=== PATIENT | female | born 1965 | race African-American/Black ===

== ENCOUNTER 2016-05-31 10:36 | Inpatient (IN) | payer MEDICARE ==
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
--- NOTE | ~2016-05-31 | DS ---
Unit #: [id number] #: [id number] Patient: SANDI WESTON [id number] [facility] [address] [place] [address] [id number] I MR#: [id number] NAME: SANDI WESTON ROOM: [facility] Age: 50 Sex: F Admission Date: 05/31/2016 : 1965 Discharge Date: 06/03/2016 Attending Physician: Zachery Keith M.D. Primary Care Physician: Primary Care Physician No DISCHARGE SUMMARY REASON FOR ADMISSION Sandi is a 50-year-old woman trying to cut herself with a steak knife when she came to the hospital. She appeared to be paranoid and out of control, and denied a history of drug abuse, although there was some opioids and her toxicology screen. She was admitted for suicidal ideation. DIAGNOSTIC STUDIES LABORATORY RESULTS: Please see hospital chart. HOSPITAL COURSE Sandi was admitted and placed on suicide precautions. Thorazine was provided for agitation and she began a treatment with antidepressant medication. Zoloft 50 mg daily with Seroquel 100 mg at bedtime for insomnia and psychotic features. She tolerated these medications well with no significant adverse side effects and her suicidal ideation rapidly improved. On the date of discharge, she was able to contract for safety with no further suicidal ideation, intent, or plan and no signs of psychotic symptoms. DISCHARGE DIAGNOSES AXIS I: Major depression with psychotic features. AXIS II: No diagnosis. AXIS III: Self-inflicted lacerations. AXIS IV: AXIS V: DISCHARGE INSTRUCTIONS Follow up with [facility] and primary care physician. DISCHARGE MEDICATIONS Zoloft 50 mg daily for depression, Seroquel 100 mg at bedtime for mood stability and sleep. Primary care medicines were Proventil inhaler 2 puffs every 6 hours as needed for shortness of air. CONDITION AT DISCHARGE Improved. PROGNOSIS Good. DIET AND ACTIVITY Per primary care doctor. Unit #: [id number] #: [id number] Patient: SANDI WESTON Dictated by... Zachery Keith M.D. MR/modl TD: 06/04/2016 13:10 JOB #: [id number] DISCHARGE SUMMARY Page 1 of 1 X Zachery Keith MD DISCHARGE SUMMARY
--- NOTE | ~2016-05-31 | HP ---
Unit #: [id number] #: [id number] Patient: SANDI WESTON [id number] [place] [address] [id number] I MR#: [id number] NAME: SANDI WESTON ROOM: [facility] Age: 50 Sex: F Admission Date: 05/31/2016 : 1965 Attending Physician: Zachery Keith M.D. Admitting Physician: Zachery Keith M.D. Primary Care Physician: Primary Care Physician No HISTORY AND PHYSICAL HISTORY OF PRESENT ILLNESS Sandi is a 50 year old admitted to [facility] with depression and self-harming behavior. She has been cutting her arms. PAST MEDICAL HISTORY Asthma. PAST SURGICAL HISTORY Nothing reported. ALLERGIES No known drug allergies. SOCIAL HISTORY She denies cigarettes, alcohol and illicit drug use. FAMILY HISTORY Medically noncontributory. REVIEW OF SYSTEMS CONSTITUTIONAL: No fever or chills. HEENT: Denies any sore throat, ear pain or runny nose. CARDIOVASCULAR: Denies chest pain, irregular heart rhythm or palpitations. CHEST: Denies shortness of breath or cough. No hemoptysis. GASTROINTESTINAL: Denies nausea, vomiting, diarrhea or chronic constipation. ENDOCRINE: Denies history of increased thirst or urination. No recent significant weight loss or gain. GENITOURINARY: Denies dysuria, frequency, or hematuria. SKIN: Denies any rashes. HEMATOLOGIC: Denies history of increased bleeding or bruising. MUSCULOSKELETAL: Denies any hot, swollen joints. No generalized muscle pain. NEUROLOGIC: Denies problems with vision or speech. No frequent, severe headaches. No numbness, tingling or weakness in any extremities. Denies loss of bladder or bowel control. CURRENT MEDICATIONS 1. Thorazine 50 mg q.4 hours p.r.n. 2. Milk of Magnesia p.r.n. 3. Maalox p.r.n. 4. Tylenol p.r.n. Unit #: [id number] #: [id number] Patient: SANDI WESTON PHYSICAL EXAMINATION GENERAL: Alert, thin, in no apparent distress. VITAL SIGNS: Blood pressure 120/72, heart rate 80, respirations 16, temperature 98.6. WEIGHT: 150 pounds. HEIGHT: 5'6". SKIN: Warm and dry without rash. She has multiple cuts along both forearms. These areas have dry blood or have scabbed over. There is no increased redness, swelling, heat or pus noted. HEENT: Normocephalic. TMs not viewed. Oral and nasal passages clear. Conjunctivae clear. Pupils equal, round and reactive to light and accommodation. Extraocular movements intact. NECK: Supple without lymphadenopathy or thyromegaly. HEART: Regular rate and rhythm without murmur. LUNGS: Clear. ABDOMEN: Soft, nontender. : Not done. EXTREMITIES: No evidence of cyanosis, clubbing or edema. Moves all extremities without focal deficit. NEUROLOGICAL: Grossly within normal limits. Cranial Nerves: II: Visual franks are intact. III, IV AND : Extraocular movements are intact. Pupils are equal, round and reactive to light. V: Facial sensation is grossly normal. VII: Facial movements and expression are normal. VIII: Auditory acuity grossly intact. IX, X: Uvula is midline. Phonation is normal. XI: Patient shrugs shoulders and turns head normally. XII: Tongue protrudes in the midline. Sensory and Motor Function: Sensory and motor sensation is grossly normal. Motor: moves all extremities well. Coordination: Gait is normal. Deep Tendon Reflexes: Intact. IMPRESSION 1. Psychiatric admission 2. Multiple self-inflicted cuts along her arms sustained prior to this admission. RECOMMENDATIONS PSYCHIATRIC: Per psychiatrist. MEDICAL: 1. I see no contraindications to participating in facility's activities. 2. Keep the areas clean with soap and water. MEDICAL PROGNOSIS Good. MEDICAL CONDITION Stable. Dictated by... Shital Melgar P.A.-C. for Kym Cortés M.D. Unit #: [id number] #: [id number] Patient: SANDI WESTON RICK/martine TD: 05/31/2016 23:21 JOB #: [id number] HISTORY AND PHYSICAL Page 1 of 1 X Shital Melgar HISTORY AND PHYSICAL
--- NOTE | ~2016-05-31 | PN ---
Unit #: [id number] #: [id number] Patient: SANDI WESTON [id number] [facility] [address] [place] [address] [id number] I MR#: [id number] NAME: SANDI WESTON ROOM: [facility] Age: 50 Sex: F Admission Date: 05/31/2016 : 1965 Attending Physician: Zachery Keith M.D. Admitting Physician: Zachery Keith M.D. Primary Care Physician: Maki Primary Care Physician BEATA PROGRESS NOTES DATE 06/02/2016 DISCUSSION Sandi is mildly improved today with a little bit brighter affect and full compliance with medications. She does admit to a little bit of sedation from her medications, but says that she would like to begin participating in unit groups and activities. She is alert and fully oriented with no evidence of psychosis and ongoing suicidal thinking. ASSESSMENT Bipolar depressed versus major depression with psychotic features. PLAN Continue current treatment plan. Dictated by... Derrick Cabrera/monserrat TD: 06/03/2016 13:08 JOB #: [id number] PROGRESS NOTES Page 1 of 1 X Zachery Keith MD PROGRESS NOTE
== END 2016-06-03 18:00 | disposition home or self-care (01) | DRG 885 ==
LOC: P1E 10:36 → P2L 22:47
DX: F23 Brief psychotic disorder (principal); R45.851 Suicidal ideations; F31.5 Bipolar disorder, current episode depressed, severe, with psychotic features; J45.909 Unspecified asthma, uncomplicated; S41.112D Laceration without foreign body of left upper arm, subsequent encounter; S41.111D Laceration without foreign body of right upper arm, subsequent encounter; X83.8XXD Intentional self-harm by other specified means, subsequent encounter